=== PATIENT | male | born 1960 | race Caucasian/White ===

== ENCOUNTER 2020-12-14 09:31 | Emergency (ER) | payer BC, SELFPAY ==
[~2020-12-14] VITALS: Ht 172.7 cm; Wt 97.5 kg
[2020-12-14 09:31] VITALS: BP_SYST 120
--- NOTE | 2020-12-14 09:31 | NUR ---
BROUGHT BACK TO TRIAGE TENT, TRIAGED AND WILL ASSUME CARE
--- NOTE | 2020-12-14 09:36 | NUR ---
DR LU OUT TO TENT FOR EVALUATION
--- NOTE | 2020-12-14 09:40 | NUR ---
PER DR LU, PT BROUGHT INTO ROOM #6 AND REPORT GIVEN TO MAKSIM
--- NOTE | 2020-12-14 09:48 | NUR ---
Pt. bib with c/o feeling sick since last tuesday, states has headache 11/08 and has had recurring fevers of 101.0 to 103.0 sometimes causing halluctions, overall weakness and N/V/D. Has had 2 negative covid test and was vaccinated.
--- NOTE | 2020-12-14 09:54 | NUR ---
labs being drawn
--- NOTE | 2020-12-14 10:06 | NUR ---
chest xray taken and covid swab sent
[2020-12-14] MEDS ORDERED: IBUPROFEN 800 MG TABLET PO ONE (10:15)
--- NOTE | 2020-12-14 10:17 | NUR ---
Motrin given for headache
[2020-12-14 10:26] LABS: BASOPHILS # (AUTO) 0.1 K/uL (0.0-0.2); BASOPHILS % (AUTO) 0.5 % (0.0-2.0); EOSINOPHILS % (AUTO) 0.2 % (0.0-4.0); HEMATOCRIT 40.7 % (36-54); HEMOGLOBIN 14.4 g/dL (14.0-18.0); LYMPHOCYTES # (AUTO) 1.2 K/uL (1.0-5.5); LYMPHOCYTES % (AUTO) 9.3 % (20.5-51.5); MEAN CORPUSCULAR HEMOGLOBIN 31 pg (27-31); MEAN CORPUSCULAR HGB CONC 35 % (32-36); MEAN CORPUSCULAR VOLUME 88 fL (79.0-98.0); MONOCYTES # (AUTO) 1.5 K/uL (0.0-1.0); NEUTROPHILS # (AUTO) 9.8 K/uL (1.8-7.7); PLATELET COUNT (AUTO) 249 K/uL (130-430); RED BLOOD CELL COUNT(AUTO) 4.63 MIL/uL (4.2-6.2); RED CELL DISTRIBUTION WIDTH 12.7 % (9.0-15.0); WHITE BLOOD COUNT (AUTO) 12.6 K/uL (4.8-10.8)
[2020-12-14 10:49] LABS: CALCIUM 8.6 mg/dL (8.4-11.0); CREATININE 0.87 mg/dL (0.55-1.30); POTASSIUM 3.7 mmol/L (3.5-5.1)
[2020-12-14 10:53] LABS: ALBUMIN 2.8 g/dL (3.4-4.8); TOTAL BILIRUBIN 0.5 mg/dL (0.0-1.0)
[2020-12-14 11:03] LABS: C-REACTIVE PROTEIN QUANT 30.9 mg/dL (0-0.5)
[2020-12-14] MEDS ORDERED: IBUP-1971 PO (11:12)
[2020-12-14] MEDS ORDERED: ALBU8.5H8 INH (11:12)
[2020-12-14] MEDS ORDERED: LEVO750T45 PO (11:12)
[2020-12-14 11:23] VITALS: BP_SYST 120
--- NOTE | 2020-12-14 11:25 | NUR ---
Patient given written and verbal discharge instructions and verbalizes understanding. ER Dr. Maya discussed with patient the results and treatment provided. Patient in stable condition. ID arm band removed. Rx of Albuterol, Motrin, and Levaquin given. Patient educated on pain management and to follow up with PMD. Pain Scale 3.Opportunity for questions provided and answered. Medication side effect fact sheet provided.
== END 2020-12-14 11:25 | disposition home or self-care (01) ==
LOC: SED 09:31
DX: J18.9 Pneumonia, unspecified organism (principal); Z20.822 Contact with and (suspected) exposure to COVID-19
CPT/HCPCS: 36415; 71045; 80053; 83605; 83880; 84145; 84484; 85025; 86140; 99284; C9803; U0003